=== PATIENT | female | born 1995 | race Caucasian/White ===

== ENCOUNTER 2017-06-15 22:44 | Emergency (ER) | payer SELFPAY ==
[~2017-06-15] VITALS: Ht 167.6 cm; Wt 77.1 kg
[~2017-06-15 22:44] MED LIST: 'PARAFON FORTE500 M1 PO; AMOXIL500 M1 PO; ANAPROX DS550 MG PO; AUGMENTIN 875875 MG PO; BACTRIM DS 8001 TA1 PO; CIPRO500 MG PO; CLARITIN10 MG PO; CONCERTA27 MG PO; IBU800 MG PO; MIRALAX POWDER17 G1 PO; MOTRIN400 MG PO; MOTRIN600 MG PO; MOTRIN800 MG PO; NAPROSYN500 MG PO; NKHM; TYLENOL W/CODE480 ML PO; WYMOX500 MG PO; ZITHROMAX Z PA250 MG PO
[2017-06-15 22:51] VITALS: BP 124/67
== END 2017-06-15 23:21 | disposition home or self-care (01) ==
LOC: ED 22:44
DX: Z32.01 Encounter for pregnancy test, result positive (principal); F17.200 Nicotine dependence, unspecified, uncomplicated

== ENCOUNTER 2023-02-03 17:50 | Emergency (ER) | payer OTHER ==
[~2023-02-03] VITALS: Ht 167.6 cm; Wt 68.0 kg
[~2023-02-03 17:50] MED LIST changes: +DELTASONE20 M1 PO; +Motrin,Rufen800 MG PO
[2023-02-03 18:08] VITALS: BP 111/60
[2023-02-03] MEDS ORDERED: AMOXICILLIN500 M2 PO (19:44)
== END 2023-02-03 19:50 | disposition home or self-care (01) ==
LOC: ED 17:50
DX: J02.9 Acute pharyngitis, unspecified (principal)